=== PATIENT | female | born 1990 | race Two or more races ===

== ENCOUNTER 2021-01-05 23:21 | Emergency (ER) | payer OTHER ==
[~2021-01-05] VITALS: Ht 165.1 cm; Wt 54.4 kg
[2021-01-05] MEDS ORDERED: PRENA1 TRUE CO1 EACH (23:53)
== END 2021-01-06 03:53 | disposition home or self-care (01) ==
LOC: ER 23:21
DX: O26.891 Other specified pregnancy related conditions, first trimester (principal); S30.1XXA Contusion of abdominal wall, initial encounter; V49.9XXA Car occupant (driver) (passenger) injured in unspecified traffic accident, initial encounter; Y93.89 Activity, other specified; Y92.488 Other paved roadways as the place of occurrence of the external cause; Y99.8 Other external cause status; Z34.01 Encounter for supervision of normal first pregnancy, first trimester